=== PATIENT | female | born 1960 | race Caucasian/White ===

== ENCOUNTER 2018-04-14 06:52 | Day surgery (SDC) | payer OTHER ==
[~2018-04-14 06:52] MED LIST: ZYRTEC10 M3 PO
== END 2018-04-14 13:05 | disposition home or self-care (01) ==
LOC: AMB-ENDOS 06:52
DX: D12.8 Benign neoplasm of rectum (principal)

== ENCOUNTER 2021-04-08 11:24 | Day surgery (SDC) | payer OTHER | END 2021-04-08 16:50 | disposition home or self-care (01) | LOC: AMB-ENDOS 11:24 | PROVIDERS: ATTEND Surgery | DX: K62.89 Other specified diseases of anus and rectum (principal); Z20.822 Contact with and (suspected) exposure to COVID-19 ==